=== PATIENT | female | born 1980 | race Hispanic/Latino ===

== ENCOUNTER 2017-11-14 00:56 | Emergency (ER) | payer SELFPAY ==
[2017-11-14 01:35] VITALS: BP 127/85
[2017-11-14] MEDS ORDERED: NORCO 5/325 PO ONE (05:02)
[2017-11-14] MEDS ORDERED: NORCO 5/325 ONE (05:03)
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
[2017-11-14 07:21] LABS: Basophils # (Auto) 0.1 K/mm3 (0.0-0.1); Basophils % (Auto) 0.9 % (0.0-1.8); Eosinophils # (Auto) 0.2 K/mm3 (0.0-0.4); Eosinophils % (Auto) 1.6 % (0.0-4.3); Hematocrit 38.4 % (30.3-42.9); Hemoglobin 12.7 gm/dl (10.1-14.3); Lymphocytes # (Auto) 1.8 K/mm3 (1.2-5.4); Lymphocytes % (Auto) 19.2 % (13.4-35.0); Mean Corpuscular HGB Conc 33 % (30-34); Mean Corpuscular Hemoglobin 31 pg (28-32); Mean Corpuscular Volume 94 fl (79-97); Monocytes # (Auto) 0.7 K/mm3 (0.0-0.8); Monocytes % (Auto) 6.9 % (0.0-7.3); Platelet Count 279 K/mm3 (140-440); Red Blood Count 4.07 M/mm3 (3.65-5.03); Red Cell Distribution Width 12.6 % (13.2-15.2)
[2017-11-14 08:08] LABS: Albumin 4.2 g/dL (3.9-5); BUN/Creatinine Ratio 29; Blood Urea Nitrogen 20 mg/dL (7-17); Calcium 9.1 mg/dL (8.4-10.2); Hemolysis Index 8
[2017-11-14] MEDS ORDERED: CLEOCIN 600 MG/50 mL 600 MG/50 ML BAG IV ONE (08:09)
[2017-11-14] MEDS ORDERED: K-DUR PO ONE (08:09)
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
[2017-11-14 08:59] LABS: Alanine Aminotransferase 10 units/L (7-56)
== END 2017-11-14 09:20 | disposition home or self-care (01) ==
LOC: ED 00:56
DX: L03.115 Cellulitis of right lower limb (principal); F17.200 Nicotine dependence, unspecified, uncomplicated
CPT/HCPCS: 36415; 80053; 85025; 96365

== ENCOUNTER 2018-11-10 12:18 | Inpatient (IN) | payer SELFPAY ==
[2018-11-10] MEDS ORDERED: QUELICIN ONE (12:21)
[2018-11-10] MEDS ORDERED: AMIDATE IV ONE ×2 (12:21→12:50)
[2018-11-10] MEDS ORDERED: DIPRIVAN 10 MG/ML 1,000 MG/100 ML BOTTLE IV ONE (12:29)
[2018-11-10] MEDS ORDERED: NACL 0.9% 1000 ML 1,000 ML IV ONE (12:33)
[2018-11-10] MEDS ORDERED: VASELINE LIP THERAPY TP PRN (12:35)
[2018-11-10] MEDS ORDERED: ARTIFICIAL TEARS OPHTH OINT OU PRN (12:35)
[2018-11-10] MEDS ORDERED: NARCAN 2 MG/2 ML IV ONE (12:50)
[2018-11-10] MEDS ORDERED: QUELICIN IV ONE (12:51)
[2018-11-10] MEDS ORDERED: DIPRIVAN 10 MG/ML 1,000 MG/100 ML BOTTLE IV SCH (13:00)
[2018-11-10 13:03] LABS: Bilirubin,Urine NEG (Negative); Blood,Urine SM (Negative); Color,Urine Amber (Yellow); Mucus,Urine 3+ /HPF
[2018-11-10 13:06] LABS: WBC,Urine > 182.0 /HPF (0.0-6.0)
[2018-11-10 13:06] LABS: Cannabinoid Screen,Urine PRESUMPTIVE NEGATIVE; Cocaine Screen,Urine PRESUMPTIVE NEGATIVE; Methadone Screen,Urine PRESUMPTIVE NEGATIVE; Opiate Screen,Urine PRESUMPTIVE NEGATIVE
--- NOTE | 2018-11-10 13:22 | XRay Report ---
FINAL REPORT EXAM: XR CHEST 1V AP HISTORY: ETT placement COMPARISON: None. TECHNIQUE: Single frontal view of the chest FINDINGS: Endotracheal tube with tip in the midtrachea. The cardiomediastinal silhouette is normal in appearance. The lungs are clear without focal consolidation. No pleural effusion or pneumothorax. No acute bony or soft tissue abnormality. IMPRESSION: Endotracheal tube with tip in the midtrachea.
[2018-11-10 13:26] LABS: Basophils # (Auto) 0.1 K/mm3 (0.0-0.1); Basophils % (Auto) 1.1 % (0.0-1.8); Eosinophils % (Auto) 0.6 % (0.0-4.3); Hematocrit 37.6 % (30.3-42.9); Hemoglobin 12.7 gm/dl (10.1-14.3); Lymphocytes # (Auto) 1.2 K/mm3 (1.2-5.4); Lymphocytes % (Auto) 15.9 % (13.4-35.0); Mean Corpuscular HGB Conc 34 % (30-34); Mean Corpuscular Volume 94 fl (79-97); Monocytes # (Auto) 0.7 K/mm3 (0.0-0.8); Monocytes % (Auto) 9.9 % (0.0-7.3); Platelet Count 266 K/mm3 (140-440); Red Blood Count 3.99 M/mm3 (3.65-5.03); Red Cell Distribution Width 12.6 % (13.2-15.2)
[2018-11-10 13:32] LABS: Amphetamine Screen,Urine PRESUMPTIVE POSITIVE; Benzodiazepines Screen,Urine PRESUMPTIVE POSITIVE
[2018-11-10 13:38] LABS: INR 1.17 (0.87-1.13)
[2018-11-10 13:39] LABS: Partial Thromboplastin Time 31.9 Sec. (24.2-36.6)
[2018-11-10 13:59] LABS: Creatine Kinase MB 2.4 ng/mL (0.0-4.0)
[2018-11-10 14:01] LABS: Alanine Aminotransferase 11 units/L (7-56); Albumin 4.4 g/dL (3.9-5); BUN/Creatinine Ratio 24; Bilirubin,Direct 0.3 mg/dL (0-0.2); Blood Urea Nitrogen 19 mg/dL (7-17); Calcium 9.3 mg/dL (8.4-10.2); Hemolysis Index 20
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
[2018-11-10] MEDS ORDERED: ASPIRIN PR ONE ×2 (14:19→18:33)
[2018-11-10] MEDS ORDERED: ROCEPHIN/NS 1 GM/50 ML 1 GM/50 ML BAG IV ONE (15:00)
--- NOTE | 2018-11-10 15:15 | Cat Scan Report ---
FINAL REPORT EXAM: CT HEAD/BRAIN WO CON HISTORY: AMS COMPARISON: None TECHNIQUE: Multiple contiguous axial images were obtained from the skullbase to the vertex without a dministration of IV contrast. FINDINGS: There is normal brain volume for the patient's age. There is normal garcia-white differentiation. There is no parenchymal hemorrhage or extra-axial fluid collection. There is no mass or mass effect. There is no acute territorial infarct. The ventricles are midline. The subarachnoid spaces and basilar cis terns are clear. There is no skull fracture. The paranasal sinuses and mastoid air cells are clear. T he bilateral orbits are intact. IMPRESSION: No acute intracranial abnormality.
[2018-11-10] MEDS ORDERED: TYLENOL PR ONE (17:01)
[2018-11-10] MEDS: KCL 10MEQ/100ML 10 MEQ/100 ML BAG IV SCH ×4 (17:03→20:49)
[2018-11-10] MEDS ORDERED: TYLENOL ONE (18:34)
[2018-11-10] MEDS: ROCEPHIN/NS 2 GM/100 ML 2 GM/100 ML BAG IV SCH (20:00)
--- NOTE | 2018-11-11 06:02 | History and Physical Report ---
History of Present Illness Date of examination: 11/10/18 Date of admission: 11/10/18 14:20 Chief complaint: Unresponsive and found in a automobile passed out History of present illness: 38-year-old female arrives via EMS after being found obtunded in a vehicle at [facility] parking lot. The patient was transported to this facility via EMS. She did not respond to milligrams of Narcan. She was obtunded on arrival with depressed respirations. Her pulse oximetry on supplemental oxygen is 99-100%. Patient was given additional Narcan. She did not respond. Therefore she was considered to be appropriate for rapid sequence intubation which was immediately performed without difficulty. The patient remained stable after intubation. In the ER when patient became more alert and responsive and was breathing on her own and on advice of dental lab technician Dr Diaz patient was extubated. Post extubation patient was alert and oriented. She says she consumes GBH for euphopia and increased sex drive once a month.Apparently she passed out after taking GBH in excess. Past Medical History None Surgical History Past Surgical History?: Yes Additional Surgical History: rhinoplasty, breast implants Social History Takes GBH once a month -Medications Home Medications: Home Medications Medication Instructions Recorded Confirmed Last Taken Type Clindamycin [Clindamycin CAP] 300 mg PO Q8H 7 Days cap 11/14/17 Unknown Rx traMADol [Ultram] 50 mg PO Q6HR PRN #12 tablet 11/14/17 Unknown Rx Review of Systems ROS: Stated complaint: OVERDOSE Other details as noted in HPI Comment: Unobtainable due to pts medical conditions Medications and Allergies Allergies Allergy/AdvReac Type Severity Reaction Status Date / Time No Known Allergies Allergy Verified 11/14/17 05:08 Home Medications Medication Instructions Recorded Confirmed Last Taken Type Clindamycin [Clindamycin CAP] 300 mg PO Q8H 7 Days cap 11/14/17 Unknown Rx traMADol [Ultram] 50 mg PO Q6HR PRN #12 tablet 11/14/17 Unknown Rx Active Meds: Active Medications Enoxaparin Sodium (Lovenox) 40 mg SUB-Q QDAY MIRACLE Hydrophilic Ointment (Vaseline Lip Therapy) 1 applic TP Q2HR PRN PRN Reason: Dry Lips Propofol (Diprivan 10 Mg/Ml) 1,000 mg in 100 mls @ 1.837 mls/hr IV TITR MIRACLE; Protocol Last Titration: 11/10/18 15:07 Dose: 0 mcg/kg/min, 0 mls/hr Documented by: Ceftriaxone Sodium (Rocephin/Ns 2 Gm/100 Ml) 2 gm in 100 mls @ 200 mls/hr IV Q24HR MIRACLE; Protocol Last Admin: 11/10/18 20:00 Dose: 200 mls/hr Documented by: Multi-Ingred Cream/Lotion/Oil/Oint (Artificial Tears Ophth Oint) 1 applic OU Q4HR PRN PRN Reason: Dry Eye(s) Exam - Constitutional Vitals: Temp Pulse Resp BP Pulse Ox 97.7 F 79 16 96/61 97 11/11/18 04:54 11/11/18 04:54 11/11/18 04:54 11/11/18 04:54 11/11/18 04:54 General appearance: Present: no acute distress, well-nourished, other (Intubated initially and extubated afer 3 hrs) - EENT Eyes: Present: PERRL ENT: hearing intact, clear oral mucosa - Neck Neck: Present: supple, normal ROM - Respiratory Respiratory effort: normal Respiratory: bilateral: CTA - Cardiovascular Heart rate: 78 Rhythm: regular Heart Sounds: Present: S1 & S2. Absent: rub, click - Extremities Extremities: no ischemia, pulses intact, pulses symmetrical, No edema Peripheral Pulses: within normal limits - Abdominal General gastrointestinal: Present: soft, non-tender, non-distended, normal bowel sounds Female genitourinary: Present: normal - Integumentary Integumentary: Present: clear, warm, dry - Musculoskeletal Musculoskeletal: gait normal, strength equal bilaterally - Psychiatric Psychiatric: appropriate mood/affect, intact judgment & insight, other (After extubation) - Neurologic Neurologic: CNII-XII intact, moves all extremities - Allied Health Allied health notes reviewed: nursing, case management Results - Labs CBC & Chem 7: 11/10/18 13:15 11/10/18 13:15 Labs: Laboratory Last Values WBC 7.2 K/mm3 (4.5-11.0) 11/10/18 13:15 RBC 3.99 M/mm3 (3.65-5.03) 11/10/18 13:15 Hgb 12.7 gm/dl (10.1-14.3) 11/10/18 13:15 Hct 37.6 % (30.3-42.9) 11/10/18 13:15 MCV 94 fl (79-97) 11/10/18 13:15 MCH 32 pg (28-32) 11/10/18 13:15 MCHC 34 % (30-34) 11/10/18 13:15 RDW 12.6 % (13.2-15.2) L 11/10/18 13:15 Plt Count 266 K/mm3 (140-440) 11/10/18 13:15 Lymph % (Auto) 15.9 % (13.4-35.0) 11/10/18 13:15 [place] % (Auto) 9.9 % (0.0-7.3) H 11/10/18 13:15 Eos % (Auto) 0.6 % (0.0-4.3) 11/10/18 13:15 Baso % (Auto) 1.1 % (0.0-1.8) 11/10/18 13:15 Lymph # 1.2 K/mm3 (1.2-5.4) 11/10/18 13:15 [place] # 0.7 K/mm3 (0.0-0.8) 11/10/18 13:15 Eos # 0.0 K/mm3 (0.0-0.4) 11/10/18 13:15 Baso # 0.1 K/mm3 (0.0-0.1) 11/10/18 13:15 Seg Neutrophils % 72.5 % (40.0-70.0) H 11/10/18 13:15 Seg Neutrophils # 5.2 K/mm3 (1.8-7.7) 11/10/18 13:15 PT 15.3 Sec. (12.2-14.9) H 11/10/18 13:15 INR 1.17 (0.87-1.13) H 11/10/18 13:15 APTT 31.9 Sec. (24.2-36.6) 11/10/18 13:15 POC ABG pH 7.468 (7.35-7.45) H 11/10/18 13:13 POC ABG pCO2 35.5 (35-45) 11/10/18 13:13 POC ABG pO2 293 (80-105) H 11/10/18 13:13 POC ABG HCO3 25.7 11/10/18 13:13 POC ABG Total CO2 27 11/10/18 13:13 POC ABG O2 Sat 100 11/10/18 13:13 POC ABG Base Excess 2 11/10/18 13:13 FiO2 80 % 11/10/18 13:13 Sodium 141 mmol/L (137-145) 11/10/18 13:15 Potassium 3.0 mmol/L (3.6-5.0) L 11/10/18 13:15 Chloride 100.0 mmol/L (98-107) 11/10/18 13:15 Carbon Dioxide 22 mmol/L (22-30) 11/10/18 13:15 Anion Gap 22 mmol/L 11/10/18 13:15 BUN 19 mg/dL (7-17) H 11/10/18 13:15 Creatinine 0.8 mg/dL (0.7-1.2) 11/10/18 13:15 Estimated GFR > 60 ml/min 11/10/18 13:15 BUN/Creatinine Ratio 24 % 11/10/18 13:15 Glucose 106 mg/dL (65-100) H 11/10/18 13:15 Lactic Acid 1.20 mmol/L (0.7-2.0) 11/10/18 13:15 Calcium 9.3 mg/dL (8.4-10.2) 11/10/18 13:15 Magnesium 2.10 mg/dL (1.7-2.3) 11/10/18 13:15 Total Bilirubin 1.10 mg/dL (0.1-1.2) 11/10/18 13:15 Direct Bilirubin 0.3 mg/dL (0-0.2) H 11/10/18 13:15 Indirect Bilirubin 0.8 mg/dL 11/10/18 13:15 AST 15 units/L (5-40) 11/10/18 13:15 ALT 11 units/L (7-56) 11/10/18 13:15 Alkaline Phosphatase 65 units/L (35-129) 11/10/18 13:15 Ammonia 74.0 umol/L (25-60) H 11/10/18 13:15 Total Creatine Kinase 249 units/L (30-135) H 11/10/18 13:15 CK-MB (CK-2) 2.4 ng/mL (0.0-4.0) 11/10/18 13:15 CK-MB (CK-2) Rel Index 0.9 (0-4) 11/10/18 13:15 Troponin T < 0.010 ng/mL (0.00-0.029) 11/10/18 13:15 Total Protein 7.2 g/dL (6.3-8.2) 11/10/18 13:15 Albumin 4.4 g/dL (3.9-5) 11/10/18 13:15 Albumin/Globulin Ratio 1.6 % 11/10/18 13:15 Urine Color [place] (Yellow) 11/10/18 12:36 Urine Turbidity Cloudy (Clear) 11/10/18 12:36 Urine pH 6.0 (5.0-7.0) 11/10/18 12:36 Ur Specific [place] 1.021 (1.003-1.030) 11/10/18 12:36 Urine Protein 100 mg/dl mg/dL (Negative) 11/10/18 12:36 Urine Glucose (UA) Neg mg/dL (Negative) 11/10/18 12:36 Urine Ketones 20 mg/dL (Negative) 11/10/18 12:36 Urine Blood Sm (Negative) 11/10/18 12:36 Urine Nitrite Neg (Negative) 11/10/18 12:36 Urine Bilirubin Neg (Negative) 11/10/18 12:36 Urine Urobilinogen 4.0 mg/dL (<2.0) 11/10/18 12:36 Ur Leukocyte Esterase Lg (Negative) 11/10/18 12:36 Urine WBC (Auto) > 182.0 /HPF (0.0-6.0) H 11/10/18 12:36 Urine RBC (Auto) 27.0 /HPF (0.0-6.0) 11/10/18 12:36 U Epithel Cells (Auto) 4.0 /HPF (0-13.0) 11/10/18 12:36 Urine WBC Clumps 3+ /HPF 11/10/18 12:36 Ur Transition Epith Cell 3 /HPF 11/10/18 12:36 Urine Mucus 3+ /HPF 11/10/18 12:36 Salicylates < 0.3 mg/dL (2.8-20.0) L 11/10/18 13:15 Urine Opiates Screen Presumptive negative 11/10/18 12:39 Urine Methadone Screen Presumptive negative 11/10/18 12:39 Acetaminophen < 5.0 ug/mL (10.0-30.0) L 11/10/18 14:14 Ur Barbiturates Screen Presumptive negative 11/10/18 12:39 Valproic Acid < 2.8 ug/mL (50-100) L 11/10/18 Unknown Ur Phencyclidine Scrn Presumptive negative 11/10/18 12:39 Ur Amphetamines Screen Presumptive positive 11/10/18 12:39 U Benzodiazepines Scrn Presumptive positive 11/10/18 12:39 Urine Cocaine Screen Presumptive negative 11/10/18 12:39 U Marijuana (THC) Screen Presumptive negative 11/10/18 12:39 Drugs of Abuse Note Disclamer 11/10/18 12:39 Plasma/Serum Alcohol < 0.01 % (0-0.07) 11/10/18 13:15 Short CBC 11/10/18 Range/Units 13:15 WBC 7.2 (4.5-11.0) K/mm3 Hgb 12.7 (10.1-14.3) gm/dl Hct 37.6 (30.3-42.9) % Plt Count 266 (140-440) K/mm3 BMP 11/10/18 13:15 Sodium 141 Potassium 3.0 L Chloride 100.0 Carbon Dioxide 22 BUN 19 H Creatinine 0.8 Glucose 106 H Calcium 9.3 Cardiac Enzymes 11/10/18 Range/Units 13:15 Total Creatine Kinase 249 H (30-135) units/L CK-MB (CK-2) 2.4 (0.0-4.0) ng/mL Troponin T < 0.010 (0.00-0.029) ng/mL Liver Function 11/10/18 Range/Units 13:15 Total Bilirubin 1.10 (0.1-1.2) mg/dL Direct Bilirubin 0.3 H (0-0.2) mg/dL AST 15 (5-40) units/L ALT 11 (7-56) units/L Alkaline Phosphatase 65 (35-129) units/L Albumin 4.4 (3.9-5) g/dL Urine 11/10/18 Range/Units 12:36 Urine Color [place] (Yellow) Urine pH 6.0 (5.0-7.0) Ur Specific [place] 1.021 (1.003-1.030) Urine Protein 100 mg/dl (Negative) mg/dL Urine Glucose (UA) Neg (Negative) mg/dL - Imaging and Cardiology Chest x-ray: report reviewed (IMPRESSION: ET tube in place) Imaging and Cardiology: Head CT IMPRESSION: No acute intracranial abnormality. Assessment and Plan Advance Directives: Yes (Full code) VTE prophylaxis?: Chemical Plan of care discussed with patient/family: Yes - Patient Problems (1) Acute encephalopathy Current Visit: Yes Status: Acute Plan to address problem: Sec to GBH intake Recovered while in ED IV fluids and supportive care (2) Respiratory failure Current Visit: Yes Status: Acute Qualifiers: Chronicity: acute Respiratory failure complication: unspecified whether with hypoxia or hypercapnia Qualified Code(s): J96.00 - Acute respiratory failure, unspecified whether with hypoxia or hypercapnia Plan to address problem: Intubated for airway protection Extubated in ER when she came more alert and oriented (3) Hypokalemia Current Visit: Yes Status: Acute Plan to address problem: Supplemented (4) UTI (urinary tract infection) Current Visit: Yes Status: Acute Qualifiers: Urinary tract infection type: acute cystitis Hematuria presence: without hematuria Qualified Code(s): N30.00 - Acute cystitis without hematuria Plan to address problem: IV Ceftriaxine started pending Urine culture (5) Drug abuse Current Visit: Yes Status: Acute Plan to address problem: GBH in excess Patient counselled MH consult (6) DVT prophylaxis Current Visit: Yes Status: Acute Plan to address problem: On Lovenox and GI prophylaxis
[2018-11-11] MEDS ORDERED: K-DUR PO NR (06:18)
--- NOTE | 2018-11-11 08:37 | XRay Report ---
FINAL REPORT EXAM: XR CHEST 1V AP HISTORY: follow up respiratory failure TECHNIQUE: AP portable view(s) of the chest obtained. PRIORS: 11/10/2018 FINDINGS: Endotracheal tube has been removed. No mediastinal shift. Cardiac silhouette is not enlarged. No pneu mothorax, effusion, or focal pulmonary opacity identified. No acute skeletal findings. IMPRESSION: No pneumothorax or other acute pulmonary finding identified status post endotracheal tube removal.
--- NOTE | 2018-11-11 08:45 | Progress Note ---
Assessment and Plan Assessment and plan: Drug overdose with GHB patient admits to using GHB states she took too much Acute respiratory failure, was intubated, now extubated Full code status History Interval history: patient was found unresponsive at Parking lot in hotel, brought to hosp Hospitalist Physical - Physical exam Narrative exam: GEN: Not in acute distress,lying in bed HEENT: Normocephalic, atraumatic, Neck: supple, No JVD Lungs: Clear to auscultation, no wheeze Heart:S1 and S2 regular, no murmurs, rubs or gallop, Abd:soft, non tender, mild distension from ascitis, normal bowel sounds Ext: No edema, no clubbing or cyanosis Neuro: Awake,alert, oriented x 3, No focal signs Psych:Normal mood - Constitutional Vitals: Temp Pulse Resp BP Pulse Ox 97.7 F 79 16 96/61 97 11/11/18 04:54 11/11/18 04:54 11/11/18 04:54 11/11/18 04:54 11/11/18 04:54 General appearance: Present: no acute distress, well-nourished, other (Intubated initially and extubated afer 3 hrs) Results - Labs CBC & Chem 7: 11/11/18 09:13 11/11/18 09:13 Labs: Laboratory Last Values WBC 7.2 K/mm3 (4.5-11.0) 11/10/18 13:15 RBC 3.99 M/mm3 (3.65-5.03) 11/10/18 13:15 Hgb 12.7 gm/dl (10.1-14.3) 11/10/18 13:15 Hct 37.6 % (30.3-42.9) 11/10/18 13:15 MCV 94 fl (79-97) 11/10/18 13:15 MCH 32 pg (28-32) 11/10/18 13:15 MCHC 34 % (30-34) 11/10/18 13:15 RDW 12.6 % (13.2-15.2) L 11/10/18 13:15 Plt Count 266 K/mm3 (140-440) 11/10/18 13:15 Lymph % (Auto) 15.9 % (13.4-35.0) 11/10/18 13:15 [place] % (Auto) 9.9 % (0.0-7.3) H 11/10/18 13:15 Eos % (Auto) 0.6 % (0.0-4.3) 11/10/18 13:15 Baso % (Auto) 1.1 % (0.0-1.8) 11/10/18 13:15 Lymph # 1.2 K/mm3 (1.2-5.4) 11/10/18 13:15 [place] # 0.7 K/mm3 (0.0-0.8) 11/10/18 13:15 Eos # 0.0 K/mm3 (0.0-0.4) 11/10/18 13:15 Baso # 0.1 K/mm3 (0.0-0.1) 11/10/18 13:15 Seg Neutrophils % 72.5 % (40.0-70.0) H 11/10/18 13:15 Seg Neutrophils # 5.2 K/mm3 (1.8-7.7) 11/10/18 13:15 PT 15.3 Sec. (12.2-14.9) H 11/10/18 13:15 INR 1.17 (0.87-1.13) H 11/10/18 13:15 APTT 31.9 Sec. (24.2-36.6) 11/10/18 13:15 POC ABG pH 7.468 (7.35-7.45) H 11/10/18 13:13 POC ABG pCO2 35.5 (35-45) 11/10/18 13:13 POC ABG pO2 293 (80-105) H 11/10/18 13:13 POC ABG HCO3 25.7 11/10/18 13:13 POC ABG Total CO2 27 11/10/18 13:13 POC ABG O2 Sat 100 11/10/18 13:13 POC ABG Base Excess 2 11/10/18 13:13 FiO2 80 % 11/10/18 13:13 Sodium 141 mmol/L (137-145) 11/10/18 13:15 Potassium 3.0 mmol/L (3.6-5.0) L 11/10/18 13:15 Chloride 100.0 mmol/L (98-107) 11/10/18 13:15 Carbon Dioxide 22 mmol/L (22-30) 11/10/18 13:15 Anion Gap 22 mmol/L 11/10/18 13:15 BUN 19 mg/dL (7-17) H 11/10/18 13:15 Creatinine 0.8 mg/dL (0.7-1.2) 11/10/18 13:15 Estimated GFR > 60 ml/min 11/10/18 13:15 BUN/Creatinine Ratio 24 % 11/10/18 13:15 Glucose 106 mg/dL (65-100) H 11/10/18 13:15 Lactic Acid 1.20 mmol/L (0.7-2.0) 11/10/18 13:15 Calcium 9.3 mg/dL (8.4-10.2) 11/10/18 13:15 Magnesium 2.10 mg/dL (1.7-2.3) 11/10/18 13:15 Total Bilirubin 1.10 mg/dL (0.1-1.2) 11/10/18 13:15 Direct Bilirubin 0.3 mg/dL (0-0.2) H 11/10/18 13:15 Indirect Bilirubin 0.8 mg/dL 11/10/18 13:15 AST 15 units/L (5-40) 11/10/18 13:15 ALT 11 units/L (7-56) 11/10/18 13:15 Alkaline Phosphatase 65 units/L (35-129) 11/10/18 13:15 Ammonia 74.0 umol/L (25-60) H 11/10/18 13:15 Total Creatine Kinase 249 units/L (30-135) H 11/10/18 13:15 CK-MB (CK-2) 2.4 ng/mL (0.0-4.0) 11/10/18 13:15 CK-MB (CK-2) Rel Index 0.9 (0-4) 11/10/18 13:15 Troponin T < 0.010 ng/mL (0.00-0.029) 11/10/18 13:15 Total Protein 7.2 g/dL (6.3-8.2) 11/10/18 13:15 Albumin 4.4 g/dL (3.9-5) 11/10/18 13:15 Albumin/Globulin Ratio 1.6 % 11/10/18 13:15 Urine Color Jail[place] (Yellow) 11/10/18 12:36 Urine Turbidity Cloudy (Clear) 11/10/18 12:36 Urine pH 6.0 (5.0-7.0) 11/10/18 12:36 Ur Specific [place] 1.021 (1.003-1.030) 11/10/18 12:36 Urine Protein 100 mg/dl mg/dL (Negative) 11/10/18 12:36 Urine Glucose (UA) Neg mg/dL (Negative) 11/10/18 12:36 Urine Ketones 20 mg/dL (Negative) 11/10/18 12:36 Urine Blood Sm (Negative) 11/10/18 12:36 Urine Nitrite Neg (Negative) 11/10/18 12:36 Urine Bilirubin Neg (Negative) 11/10/18 12:36 Urine Urobilinogen 4.0 mg/dL (<2.0) 11/10/18 12:36 Ur Leukocyte Esterase Lg (Negative) 11/10/18 12:36 Urine WBC (Auto) > 182.0 /HPF (0.0-6.0) H 11/10/18 12:36 Urine RBC (Auto) 27.0 /HPF (0.0-6.0) 11/10/18 12:36 U Epithel Cells (Auto) 4.0 /HPF (0-13.0) 11/10/18 12:36 Urine WBC Clumps 3+ /HPF 11/10/18 12:36 Ur Transition Epith Cell 3 /HPF 11/10/18 12:36 Urine Mucus 3+ /HPF 11/10/18 12:36 Salicylates < 0.3 mg/dL (2.8-20.0) L 11/10/18 13:15 Urine Opiates Screen Presumptive negative 11/10/18 12:39 Urine Methadone Screen Presumptive negative 11/10/18 12:39 Acetaminophen < 5.0 ug/mL (10.0-30.0) L 11/10/18 14:14 Ur Barbiturates Screen Presumptive negative 11/10/18 12:39 Valproic Acid < 2.8 ug/mL (50-100) L 11/10/18 Unknown Ur Phencyclidine Scrn Presumptive negative 11/10/18 12:39 Ur Amphetamines Screen Presumptive positive 11/10/18 12:39 U Benzodiazepines Scrn Presumptive positive 11/10/18 12:39 Urine Cocaine Screen Presumptive negative 11/10/18 12:39 U Marijuana (THC) Screen Presumptive negative 11/10/18 12:39 Drugs of Abuse Note Disclamer 11/10/18 12:39 Plasma/Serum Alcohol < 0.01 % (0-0.07) 11/10/18 13:15
[2018-11-11] MEDS: D5/0.45NS 1,000 ML IV SCH ×2 (09:00→21:34)
[2018-11-11] MEDS: LOVENOX SUB-Q SCH (09:00)
[2018-11-11 09:30] LABS: Hematocrit 36.5 % (30.3-42.9); Hemoglobin 12.2 gm/dl (10.1-14.3); Mean Corpuscular HGB Conc 33 % (30-34); Mean Corpuscular Volume 94 fl (79-97); Platelet Count 248 K/mm3 (140-440); Red Blood Count 3.89 M/mm3 (3.65-5.03); Red Cell Distribution Width 12.6 % (13.2-15.2)
[2018-11-11 09:47] LABS: BUN/Creatinine Ratio 23; Blood Urea Nitrogen 14 mg/dL (7-17); Calcium 8.5 mg/dL (8.4-10.2); Hemolysis Index 16
[2018-11-11] MEDS: ROCEPHIN/NS 2 GM/100 ML 2 GM/100 ML BAG IV SCH (10:26)
--- NOTE | 2018-11-12 08:36 | XRay Report ---
AP CHEST: HISTORY: Follow up respiratory failure AP view of the chest demonstrates a normal mediastinal and cardiac contour with clear lungs and normal bony and soft tissue structures. No change since yesterday's exam at 0811 hours. IMPRESSION: Unremarkable AP chest.
[2018-11-12] MEDS: LOVENOX SUB-Q SCH (09:51)
[2018-11-12] MEDS: D5/0.45NS 1,000 ML IV SCH (09:51)
[2018-11-12] MEDS: ROCEPHIN/NS 2 GM/100 ML 2 GM/100 ML BAG IV SCH (09:51)
[2018-11-12 12:14] VITALS: BP 106/62
--- NOTE | 2018-11-12 12:23 | Consultation ---
History of Present Illness - Reason for Consult Consult date: 11/12/18 Reason for consult: Mental Health Evaluation Requesting physician: BERTRAM TAO - Chief Complaint Chief complaint: "I made a terrible mistake" - History of Present Psychiatric Illness 38-year-old female arrives via EMS after being found obtunded in a vehicle at a local hotel. Today the patient is calm and cooperative during the assessment. She stated that she was at a constitution party and ingested a larger amount of GHB than usual. She stated that she get "high off GHB" with her friend sometimes. She stated, "I have learned my lesson." She denies that she was trying to kill herself and any previous suicide attempts in the past. She denies being depressed and any manic episodes in the past. She stated that her priority is staying "clean." Her story is consistent with the mobile pizzamaker who saw the patient 11/11/2018. She denies SI/HI's and AVH's. She denies erratic sleep and a poor appetite. She stated that she drink alcohol (etoh) sometimes. Medications and Allergies Allergies Allergy/AdvReac Type Severity Reaction Status Date / Time No Known Allergies Allergy Verified 11/14/17 05:08 Active Meds: Active Medications Enoxaparin Sodium (Lovenox) 40 mg SUB-Q QDAY MIRACLE Last Admin: 11/12/18 09:51 Dose: 40 mg Documented by: Hydrophilic Ointment (Vaseline Lip Therapy) 1 applic TP Q2HR PRN PRN Reason: Dry Lips Ceftriaxone Sodium (Rocephin/Ns 2 Gm/100 Ml) 2 gm in 100 mls @ 200 mls/hr IV Q24HR MIRACLE; Protocol Last Admin: 11/12/18 09:51 Dose: 200 mls/hr Documented by: Dextrose/Sodium Chloride (D5/0.45ns) 1,000 mls @ 75 mls/hr IV DIRECT MIRACLE Last Admin: 11/12/18 09:51 Dose: 75 mls/hr Documented by: Multi-Ingred Cream/Lotion/Oil/Oint (Artificial Tears Ophth Oint) 1 applic OU Q4HR PRN PRN Reason: Dry Eye(s) Past psychiatric history - Past Medical History Past Medical History: No medical history Past Surgical History: No surgical history - past Psychiatric treatment and history psychiatric treatment history: Hx of substance abuse. Denies a fam psy hx. - Social History Social history: Lives alone Mental Status Exam - Vital signs Last Vital Signs Temp 98.7 F 11/12/18 12:12 Pulse 82 11/12/18 12:12 Resp 14 11/12/18 12:12 BP 106/62 11/12/18 12:12 Pulse Ox 97 11/12/18 12:12 - Exam Narrative exam: MSE: Appearance: calm, cooperative Behavior: regular eye contact Speech: regular rate and tone Mood: "well" Affect: congruent to mood Thought Process: logical Thought Content: denies SI/HI's and AVH's Motor Activity: lying in bed Cognition: A/O x3 Insight: appropriate Judgment: appropriate Results Result Diagrams: 11/11/18 09:13 11/11/18 09:13 All other labs normal. Assessment and Plan Assessment and plan: Impression: Unintentional overdose. Substance Use DO (amphetamines). Today the patient is calm and cooperative during the assessment. Recommendation/Plan: The patient wasn't officially on a 1013 and she does not meet the criteria at this time. Discussed the importance to abstain from recreational drug use. Dispo: The patient can follow up with [facility] for outpatient rehab services. Will staff with Dr Monalisa Brand.
--- NOTE | 2018-11-12 14:03 | Discharge Summary ---
Providers - Providers Date of Admission: 11/10/18 14:20 Date of discharge: 11/12/18 Attending physician: NAOMI GLOVER 11/10/18 12:35 Consult to Dietitian/Nutrition [CONS] Routine Physician Instructions: Reason For Exam: Reason for Consult: Evaluate nutritional intake 11/10/18 18:34 Consult to Mental Health [CONS] Routine Reason For Exam: GHB accidental overdose Place consult to:: y Notified:: y Primary care physician: GALLO DING Hospitalization Condition: Fair Hospital course: Patient was found unresponsive in parking lot of [employer] [facility], brought to ED. She stated she took GBH drug. She could not maintain airway so was intubated. Hours later she became fully awake, was extubated and admitted. Patient was evaluated by Psychiatry , stabilised and discharged home in few days. Total time spent on discharge , 31 mins Disposition: -01 TO HOME OR SELFCARE - Discharge Diagnoses (1) Toxic metabolic encephalopathy Status: Acute (2) Acute respiratory failure Status: Acute (3) Drug abuse Status: Acute (4) Hypokalemia Status: Acute (5) Overdose Status: Acute Qualifiers: Encounter type: initial encounter Injury intent: undetermined intent Qualified Code(s): T50.904A - Poisoning by unspecified drugs, medicaments and biological substances, undetermined, initial encounter Core Measure Documentation - Palliative Care Palliative Care/ Comfort Measures: Not Applicable - Core Measures Any of the following diagnoses?: none Exam - Constitutional Vitals: Temp Pulse Resp BP Pulse Ox 98.7 F 82 14 106/62 97 11/12/18 12:12 11/12/18 12:12 11/12/18 12:12 11/12/18 12:12 11/12/18 12:12 Plan Activity: advance as tolerated Diet: regular Additional Instructions: 1. Follow up with PCP or [facility] in 1 week. 2.Follow up with [facility] for outpatient follow up. Follow up with: PRIMARY CAREMD [Referring] - 3-5 Days
== END 2018-11-12 16:00 | disposition home or self-care (01) | DRG 917 ==
LOC: ED 12:18 → CC1 14:20 → 3A 18:53
PROVIDERS: ADMIT Internal Medicine; ATTEND Internal Medicine
PROC: 4A033R1 Measurement of Arterial Saturation, Peripheral, Percutaneous Approach (ICD-10-PCS; principal; 2018-11-10)
PROC: 5A1935Z Respiratory Ventilation, Less than 24 Consecutive Hours (ICD-10-PCS; 2018-11-10)
PROC: 0BH18EZ Insertion of Endotracheal Airway into Trachea, Via Natural or Artificial Opening Endoscopic (ICD-10-PCS; 2018-11-10)
DX: T49.0X1A Poisoning by local antifungal, anti-infective and anti-inflammatory drugs, accidental (unintentional), initial encounter (principal); J96.00 Acute respiratory failure, unspecified whether with hypoxia or hypercapnia; G92 Toxic encephalopathy; E72.20 Disorder of urea cycle metabolism, unspecified; N30.00 Acute cystitis without hematuria; E87.6 Hypokalemia; F19.10 Other psychoactive substance abuse, uncomplicated; F15.10 Other stimulant abuse, uncomplicated; Y92.89 Other specified places as the place of occurrence of the external cause
CPT/HCPCS: 36415; 70450; 71045; 80048; 80076; 80164; 80307; 80320; 81001; 82140; 82550; 82553; 82803; 83735; 84484; 85025; 85027; 85610; 85730; 87070; 87205; 93005; 93010; 94002; G0378; G0480; J0330; J0696; J1650; J2704; J3480; J7030

== ENCOUNTER 2022-02-24 15:00 | Emergency (ER) | payer SELFPAY | END 2022-02-24 17:20 | disposition left against medical advice (07) | LOC: ED 15:00 | DX: Z00.00 Encounter for general adult medical examination without abnormal findings (principal); Z53.21 Procedure and treatment not carried out due to patient leaving prior to being seen by health care provider ==